=== PATIENT | female | born 1980 | race American Indian/Alaskan Native ===

== ENCOUNTER 2019-04-10 09:43 | Emergency (ER) | payer BC ==
[2019-04-10 09:50] VITALS: BP 125/95
--- NOTE | 2019-04-10 12:16 | Emergency Department Report ---
- General Chief complaint: Puncture Wound Stated complaint: L FOOT PAIN Time Seen by Provider: 04/10/19 12:11 Source: patient Mode of arrival: Ambulatory Limitations: No Limitations - History of Present Illness Initial comments: Ms. Ovalles is a 39 yo female who presents with puncture wound to the left foot in her room. She stepped on 4 small nails attached to a wooden board. The injury occurred this morning. Redness and swelling have developed. MD complaint: discoloration -: Gradual, This morning Location: LLE Severity: mild Quality: aching Consistency: constant Worsens with: palpation, movement - Related Data Previous Rx's Medication Instructions Recorded Last Taken Type Ciprofloxacin HCl [Ciprofloxacin 500 mg PO Q12HR 7 Days #14 tab 04/10/19 Unknown Rx TAB] Ibuprofen [Motrin 800 MG tab] 800 mg PO Q8HR PRN #15 tablet 04/10/19 Unknown Rx Allergies Allergy/AdvReac Type Severity Reaction Status Date / Time No Known Allergies Allergy Unverified 04/10/19 09:44 Abscess Boil HPI - HPI Chief Complaint: Puncture Wound Stated Complaint: L FOOT PAIN Time Seen by Provider: 04/10/19 12:11 Home Medications: Previous Rx's Medication Instructions Recorded Last Taken Type Ciprofloxacin HCl [Ciprofloxacin 500 mg PO Q12HR 7 Days #14 tab 04/10/19 Unknown Rx TAB] Ibuprofen [Motrin 800 MG tab] 800 mg PO Q8HR PRN #15 tablet 04/10/19 Unknown Rx Allergies/Adverse Reactions: Allergies Allergy/AdvReac Type Severity Reaction Status Date / Time No Known Allergies Allergy Unverified 04/10/19 09:44 ED Review of Systems ROS: Stated complaint: L FOOT PAIN Other details as noted in HPI Constitutional: denies: fever, malaise Skin: rash, lesions, change in color ED Past Medical Hx - Past Medical History Previous Medical History?: No - Surgical History Past Surgical History?: No - Social History Smoking Status: Current Every Day Smoker Substance Use Type: Alcohol - Medications Home Medications: Home Medications Medication Instructions Recorded Confirmed Last Taken Type Ciprofloxacin HCl [Ciprofloxacin 500 mg PO Q12HR 7 Days #14 tab 04/10/19 Unknown Rx TAB] Ibuprofen [Motrin 800 MG tab] 800 mg PO Q8HR PRN #15 tablet 04/10/19 Unknown Rx ED Physical Exam - General Limitations: No Limitations General appearance: alert, in no apparent distress - Respiratory Respiratory exam: Absent: respiratory distress - Extremities Exam Extremities exam: Present: other (4 small punctate wounds left foot sole mild erythema and edema) - Skin Skin exam: Present: warm, dry ED Course Vital Signs 04/10/19 09:49 Temperature 98.4 F Pulse Rate 105 H Respiratory 18 Rate Blood Pressure 125/95 ED Medical Decision Making - Medical Decision Making foot puncture wounds given tdap in ED, rx: ciprofloxacin Critical care attestation.: If time is entered above; I have spent that time in minutes in the direct care of this critically ill patient, excluding procedure time. ED Disposition Clinical Impression: Puncture wound of foot, left Disposition: [id number] TO HOME OR SELFCARE Is pt being admited?: No Does the pt Need Aspirin: No Condition: Stable Instructions: Wound Infection (ED), Sitz Bath (GEN) Prescriptions: Ciprofloxacin HCl [Ciprofloxacin TAB] 500 mg PO Q12HR 7 Days #14 tab Ibuprofen [Motrin 800 MG tab] 800 mg PO Q8HR PRN #15 tablet PRN Reason: pain Referrals: CLYDE ZAYAS MD [Primary Care Provider] - 3-5 Days Forms: Work/School Release Form(ED)
[2019-04-10] MEDS ORDERED: IBUPROFEN PO ONE (12:19)
[2019-04-10] MEDS ORDERED: LEVAQUIN PO ONE (12:19)
[2019-04-10] MEDS ORDERED: BOOSTRIX IM ONE (12:19)
== END 2019-04-10 12:51 | disposition home or self-care (01) ==
LOC: ED 09:43
DX: S91.332A Puncture wound without foreign body, left foot, initial encounter (principal); F17.200 Nicotine dependence, unspecified, uncomplicated; W45.0XXA Nail entering through skin, initial encounter; Y93.89 Activity, other specified; Y92.89 Other specified places as the place of occurrence of the external cause; Y99.8 Other external cause status
CPT/HCPCS: 90471; 90715